=== PATIENT | male | born 1965 | race Caucasian/White ===

== ENCOUNTER 2020-11-18 16:47 | Outpatient (CLI) | payer OTHER ==
--- NOTE | 2020-11-18 17:07 | RAD ---
Exam: XR Knee Rt 2 View HISTORY: Right knee pain. COMPARISON: 09/01/2013 FINDINGS: There is tricompartment osteophytosis. There does appear to be mild joint space narrowing involving t he lateral joint compartment as well as patellofemoral joint. The knee is rotated limiting evaluation of the patellofemoral joint. No fracture or dislocation is appreciated. Small suprapatella r knee joint effusion is noted. Subcutaneous edema seen anterior to the knee. IMPRESSION: 1. Osteoarthritis without acute osseous abnormality. 2. Mild suprapatellar knee joint effusion. 3. Mild subcutaneous edema anterior to the right knee.
== END 2020-11-18 16:48 | disposition home or self-care (01) ==
LOC: NAV RAD 16:47
PROVIDERS: ATTEND Internal Medicine
DX: M25.561 Pain in right knee (principal); M17.11 Unilateral primary osteoarthritis, right knee; M25.461 Effusion, right knee; R60.0 Localized edema